=== PATIENT | female | born 1995 | race African-American/Black ===

== ENCOUNTER 2016-03-08 15:11 | Emergency (ER) | payer SELFPAY ==
--- NOTE | 2016-03-08 15:30 | ER Document Report ---
ED Medical Screen (RME) - General Stated Complaint: PAINFUL TAIL BONE Notes: 4 days painful area overlying tail bone hot, tender, no drainage never had an abscess, denies MRSA no trauma likely an abscess I have greeted and performed a rapid initial assessment of this patient. A comprehensive ED assessment and evaluation of the patient, analysis of test results and completion of the medical decision making process will be conducted by additional ED providers. TRAVEL OUTSIDE OF THE [place] IN LAST 30 DAYS: No - Related Data Allergies/Adverse Reactions: No Known Allergies Allergy (Verified 02/04/16 08:25) Past Medical History Pulmonary Medical History: Reports: Hx Asthma Neurological Medical History: Reports: Hx Migraine Psychiatric Medical History: Reports: Hx Anxiety, Hx Bipolar Disorder, Hx Depression Past Surgical History: Reports: Hx Oral Surgery - wisdom teeth - Immunizations Immunizations up to date: Yes Hx Diphtheria, Pertussis, Tetanus Vaccination: Yes
[2016-03-08] MEDS ORDERED: ACETAMINOPHEN 325 MG TABLET PO ONE (15:31)
--- NOTE | 2016-03-08 17:54 | ER Document Report ---
ED General - General Information source: Patient TRAVEL OUTSIDE OF THE [place] IN LAST 30 DAYS: No - HPI Patient complains to provider of: Swollen, Tender Area Onset: Other - ~3-4 days ago Onset/Duration: Gradual, Worse Associated symptoms: Other - See Narrative Recently [facility] <ELLI MANZANARES - Last Filed: 03/08/16 18:01> <SARA MCCLELLAND - Last Filed: 03/08/16 23:01> - General Chief Complaint: Abscess Stated Complaint: PAINFUL TAIL BONE Notes: Patient is a 20-year-old female presenting to the emergency chief complaint tender swollen area at the top of her buttock cleft which she began to notice 3- 4 days ago patient states that she has been taking amoxicillin for the past 2 days being treated for UTI. Patient was first diagnosed "the week before last" at the [place] [facility], but was not given any medication to treat the UTI. Patient states that she went to urgent care March 06, because she "cannot take it anymore. I feel like my body is shutting down." Patient states that on Tuesday she had a fever of 103.8, cough, sneezes, rhinorrhea, abdominal pain , and chills. Patient states that today she has started to have black and watery stool, abdominal pain, and "trouble flatulating." Patient denies having the flu shot this year. (ELLI MANZANARES) This 20-year-old female patient comes emergency room complaining of onset Tuesday of dry cough fever aching all over. She reports going to the [place] couple weeks ago possibly and being diagnosed with UTI with no treatment. She went to an urgent care on Tuesday for her fever of 103.8 which developed the day before with coughing, sneezing, runny nose, abdominal pain and chills. She was diagnosed with urinary tract infection started on amoxicillin. She reports early this morning about 7 AM, she had a large black and watery stool. She did not get a flu shot. She was quite reluctant to allow a rectal exam and is now been almost 15 hours since her bowel movement this morning, and she reports that she has not had any bowel movement since the one around 7 AM. She did show me a picture on her start phone of this stool and it is in fact black and looks like it is old blood possibly from an upper GI bleed. Her hemoglobin is 11.5, there is no prior lab work in our computer to compare to. Her Chem-12 is unremarkable, her white blood cell count 11,666 segs no bands, her urine is dilute with 2 WBCs and trace bacteria and small leukocyte esterase. A rapid flu test was negative. At this time she is agreeable to rectal exam by the nurse to obtain specimens to test for blood since she still has no need to have a bowel movement. (SARA MCCLELLAND) - Related Data Allergies/Adverse Reactions: No Known Allergies Allergy (Verified 03/08/16 15:29) Past Medical History - General Information source: Patient Last Menstrual Period: 03/01/2016 - Social History Smoking Status: Former Smoker Chew tobacco use (# tins/day): No Frequency of alcohol use: None Drug Abuse: None Family History: CVA, DM, Hypertension, Thyroid Disfunction Patient has suicidal ideation: No Patient has homicidal ideation: No Pulmonary Medical History: Reports: Hx Asthma Neurological Medical History: Reports: Hx Migraine Renal/ Medical History: Denies: Hx Peritoneal Dialysis Psychiatric Medical History: Reports: Hx Anxiety, Hx Bipolar Disorder, Hx Depression Past Surgical History: Reports: Hx Oral Surgery - wisdom teeth - Immunizations Immunizations up to date: Yes Hx Diphtheria, Pertussis, Tetanus Vaccination: Yes <ELLI MANZANARES - Last Filed: 03/08/16 18:01> Review of Systems - Review of Systems Constitutional: See HPI, Chills, Fever EENT: See HPI, Nose congestion Cardiovascular: No symptoms reported Respiratory: See HPI, Cough Gastrointestinal: No symptoms reported, Abdominal pain, Diarrhea, Black stools, Other - "trouble flatulating" Genitourinary: No symptoms reported Female Genitourinary: No symptoms reported Musculoskeletal: No symptoms reported Skin: See HPI, Lumps - Tender lump lower back (tail bone area) Hematologic/Lymphatic: No symptoms reported Neurological/Psychological: No symptoms reported -: Yes All other systems reviewed and negative <ELLI MANZANARES - Last Filed: 03/08/16 18:01> Physical Exam - General General appearance: Alert - HEENT Head: Normocephalic, Atraumatic Eyes: Normal Pupils: PERRL - Respiratory Respiratory status: No respiratory distress Chest status: Nontender Breath sounds: Normal Chest palpation: Normal - Cardiovascular Rhythm: Regular Heart sounds: Normal auscultation Murmur: No - Abdominal Inspection: Obese Bowel sounds: Hyperactive Tenderness: Tender - Diffuse mild tenderness to palpation - Back Back: Tender - Indurated, tender 1 cm area - left upper buttock cleft. Did not feel fluctuant. - Extremities General upper extremity: Normal inspection General lower extremity: Normal inspection - Neurological Neuro grossly intact: Yes Cognition: Normal Orientation: AAOx4 [place] Coma Scale Eye Opening: Spontaneous [place] Coma Scale Verbal: Oriented [place] Coma Scale Motor: Obeys Commands [place] Coma Scale Total: 15 Speech: Normal - Psychological Associated symptoms: Normal affect, Normal mood - Skin Skin Temperature: Warm Skin Moisture: Dry Skin Color: Normal <ELLI MANZANARES - Last Filed: 03/08/16 18:01> Course - Laboratory Result Diagrams: 03/08/16 18:45 03/08/16 18:45 <SARA MCCLELLAND - Last Filed: 03/08/16 23:01> - Vital Signs Vital signs: Temp Pulse Resp BP Pulse Ox 99.8 F 104 H 13 119/60 100 03/08/16 19:29 03/08/16 15:30 03/08/16 19:08 03/08/16 19:08 03/08/16 19:08 (ELLI MANZANARES) (SARA MCCLELLAND) - Laboratory Laboratory results interpreted by me: 03/08/16 03/08/16 18:45 20:06 WBC 11.6 H Hgb 11.5 L MCV 71 L MCH 22.5 L MCHC 31.7 L RDW 17.6 H Urine Ketones TRACE H Urine Blood SMALL H Ur Leukocyte Esterase SMALL H (SARA MCCLELLAND) Discharge <ELLI MANZANARES - Last Filed: 03/08/16 18:01> <SARA MCCLELLAND - Last Filed: 03/08/16 23:01> - Discharge Clinical Impression: Viral syndrome, Left buttock abscess Condition: Stable Disposition: HOME, SELF-CARE Additional Instructions: Viral Syndrome: The physician has diagnosed a viral infection. Viruses not only cause "colds," but can cause many different symptoms including generalized aching, fever, headache, cough, diarrhea, nausea, vomiting, and fatigue. The treatment, for the most part, is simply relief of symptoms. This means that antibiotics are usually not given. Rest, fluids, pain medications and, occasionally, medication for the specific symptoms that are most bothersome will be prescribed. Use good handwashing to avoid passing the virus to others. Shared toys should be cleaned with disinfectant. Clean the toilets, sinks, and counter surfaces in bathrooms. Launder clothing in hot water. Contact the physician if you develop any new or unusual symptoms such as severe headache, stiff neck, high fever, chest pain, productive cough, or shortness of breath. You should be rechecked if you don't see marked improvement within seven to 10 days. Abscess: You are developing an abscess (boil). This a pus-forming infection, usually due to staph. Some boils may be left to drain on their own, but most require lancing. From the time the tender lump first appears, it may be three or four days before the abscess is ready to german. Local heat and rest help at this stage of treatment. An antibiotic may prevent spread of the infection. Once the abscess is opened, packing may be placed into it. This is done so pus is not sealed inside by premature closure of the cavity. The packing will be removed at your follow-up visit or you may be advised to remove it yourself at home. Sometimes this packing must be replaced a few times during healing. The wound will heal with surprisingly little scar. Depending on the size and location of an abscess, healing can take one to four weeks. You may shower and wash the area around the incision site two or three times a day. Antibiotics may be prescribed, but are usually not necessary after an abscess has been drained. If you develop fever, chilling, worsening pain, or increasing swelling in the area, call the doctor or return immediately. //////////////////////////////////////////////////////////////////////////////// /////////////////////////////////////////////////////////////////////////////// Most of your symptoms of cough, fever, chills, and abdominal pain are due to a viral infection. The stool was tested and found to be negative for blood. The urine appears to have very little evidence of infection at this point, this may be due to the antibiotics you are taking. The painful area in her buttock is a developing abscess, it is not fluctuant or ready to be opened at this point. Frequently, if antibiotics are started this point and you soak in warm tub frequently, the infection will calm down and not require incision and drainage. Take medications as prescribed. Soak in a warm toe frequently. Get plenty of rest and drink plenty of fluids. Take Tylenol every 4 hours with Motrin or Aleve for fever and achiness. Follow-up with your primary care provider if not improving. Return to the emergency room if the painful area to your buttock continues to enlarge. Prescriptions: Clindamycin HCl 300 mg PO QID #28 capsule Hydrocodone/Acetaminophen [[place] 5-325 mg Tablet] 1 tab PO Q4 PRN #15 tablet PRN Reason: Scribe Attestation: 03/08/16 23:01 I personally performed the services described in the documentation, reviewed and edited the documentation which was dictated to the scribe in my presence, and it accurately records my words and actions. (SARA MCCLELLAND) Scribe Documentation - Scribe Written by Hubert:: Elli Manzanares 03/08/2016 1758 acting as scribe for :: Honey <ELLI MANZANARES - Last Filed: 03/08/16 18:01>
[2016-03-08] MEDS ORDERED: KETOROLAC TROMETHAMINE INJ/PF 30 MG/1 ML SDV IV ONE (18:00)
[2016-03-08] MEDS ORDERED: NORMAL SALINE 1000 ML 1,000 ML IV ONE (18:00)
[2016-03-08 19:14] LABS: ABSOLUTE MONOCYTES (AUTO) 0.9 10^3/uL (0.1-1.4); ABSOLUTE NEUT (AUTO) 7.7 10^3/uL (1.7-8.2); BASOPHILS % (AUTO) 0.2 % (0-2); EOSINOPHILS % (AUTO) 0.4 % (0-6); HEMATOCRIT 36.3 % (36.0-47.0); HEMOGLOBIN 11.5 g/dL (12.0-15.5); HGB HCT DIFFERENCE -1.8; LYMPHOCYTES % (AUTO) 25.8 % (13-45); MEAN CORPUSCULAR HEMOGLOBIN 22.5 pg (27.0-33.4); MEAN CORPUSCULAR HGB CONC 31.7 g/dL (32.0-36.0); MEAN CORPUSCULAR VOLUME 71 fl (80-97); MONOCYTES % (AUTO) 7.4 % (3-13); RED BLOOD COUNT 5.12 10^6/uL (3.72-5.28); RED CELL DISTRIBUTION WIDTH 17.6 % (11.5-14.0); SEGMENTED NEUTROPHILS % (AUTO) 66.2 % (42-78); WHITE BLOOD COUNT 11.6 10^3/uL (4.0-10.5)
[2016-03-08 19:25] LABS: ALANINE AMINOTRANSFERASE 32 U/L (9-52); ALBUMIN 3.9 g/dL (3.5-5.0); ALKALINE PHOSPHATASE 80 U/L (38-126); ANION GAP 13 (5-19); ASPARTATE AMINO TRANSFERASE 29 U/L (14-36); BILIRUBIN,TOTAL 0.5 mg/dL (0.2-1.3); BLOOD UREA NITROGEN 7 mg/dL (7-20); CALCIUM 9.1 mg/dL (8.4-10.2); CARBON DIOXIDE 26 mmol/L (22-30); CHLORIDE 99 mmol/L (98-107); GLUCOSE 94 mg/dL (75-110); POTASSIUM 3.8 mmol/L (3.6-5.0); SODIUM 138.1 mmol/L (137-145); TOTAL PROTEIN 7.5 g/dL (6.3-8.2)
[2016-03-08] MEDS ORDERED: DEXTROSE 5%-LACTATED RINGERS 1,000 ML IV ONE (19:34)
[2016-03-08 20:29] LABS: APPEARANCE,URINE SLIGHTLY-CLOUDY; BILIRUBIN,URINE NEGATIVE (NEGATIVE); GLUCOSE, URINE NEGATIVE (NEGATIVE); KETONES,URINE TRACE mg/dL (NEGATIVE); LEUKOCYTE ESTERASE,URINE SMALL (NEGATIVE); NITRITE,URINE NEGATIVE (NEGATIVE); PROTEIN,URINE NEGATIVE (NEGATIVE); URINE SPECIFIC GRAVITY 1.009; UROBILINOGEN,URINE NEGATIVE mg/dL (<2.0)
[2016-03-08] MEDS ORDERED: CLINDAMYCIN 600 MG/D5W RTU 50 ML IV ONE (20:42)
[2016-03-08] MEDS ORDERED: HYDROCODONE/ACETAMINOPHEN 5-325 MG 6 TAB/DSPK PO PRN (23:01)
[2016-03-08 23:41] VITALS: BP 122/88
== END 2016-03-08 23:17 | disposition home or self-care (01) ==
LOC: ER 15:11
DX: L02.31 Cutaneous abscess of buttock (principal); B34.9 Viral infection, unspecified; E66.9 Obesity, unspecified; R50.9 Fever, unspecified; R05 Cough; Z87.891 Personal history of nicotine dependence
CPT/HCPCS: 99283; 96361; 96375; 96365; 96367; 36415; 87040; 84703; 85025; 82272; 80053; 81001; 87804; J1885; J7030

== ENCOUNTER 2016-03-11 17:11 | Emergency (ER) | payer SELFPAY ==
[2016-03-11] MEDS ORDERED: IBUPROFEN 800 MG TABLET PO ONE (17:54)
--- NOTE | 2016-03-11 17:56 | ER Document Report ---
ED Medical Screen (RME) - General Chief Complaint: Abscess Stated Complaint: ABSCESS Mode of Arrival: Wheelchair Information source: Patient Notes: Patient returns today with complaints of abscess to her buttocks. Patient was evaluated 2 days ago and reports it's worse. Patient does have a temperature 103 with sinus tach. [facility] Patient sitting in a wheelchair unable to obtain evaluate abscess. I have greeted and performed a rapid initial assessment of this patient. A comprehensive ED assessment and evaluation of the patient, analysis of test results and completion of the medical decision making process will be conducted by additional ED providers. TRAVEL OUTSIDE OF THE [place] IN LAST 30 DAYS: No - Related Data Allergies/Adverse Reactions: No Known Allergies Allergy (Verified 03/11/16 17:54) Past Medical History Pulmonary Medical History: Reports: Hx Asthma Neurological Medical History: Reports: Hx Migraine Renal/ Medical History: Denies: Hx Peritoneal Dialysis Psychiatric Medical History: Reports: Hx Anxiety, Hx Bipolar Disorder, Hx Depression Past Surgical History: Reports: Hx Oral Surgery - wisdom teeth - Immunizations Immunizations up to date: Yes Hx Diphtheria, Pertussis, Tetanus Vaccination: Yes
[2016-03-11] MEDS ORDERED: LIDOCAINE 4%/TETRACAINE 0.5%/EPI 0.18% 5 ML TOPICAL SOLN TOP ONE (19:20)
[2016-03-11] MEDS ORDERED: ONDANSETRON 4 MG TAB.RAPDIS PO ONE (19:20)
[2016-03-11] MEDS ORDERED: OXYCODONE-ACETAMINOPHEN 5-325 MG TABLET PO ONE (19:20)
--- NOTE | 2016-03-11 19:20 | ER Document Report ---
ED Skin Rash/Insect Bite/Abscs - General Chief Complaint: Abscess Stated Complaint: ABSCESS Time seen by provider: 19:20 Mode of Arrival: Wheelchair Information source: Patient Notes: 20 yo female with enlarging right gluteal crest abscess. Fever today. Increased pain. Has been taking clindamycin prescribed a few days ago when it was a small firm area seen by dr. rebollar. TRAVEL OUTSIDE OF THE [place] IN LAST 30 DAYS: No - Related Data Allergies/Adverse Reactions: No Known Allergies Allergy (Verified 03/11/16 17:54) Past Medical History - General Information source: Patient - Social History Smoking Status: Current Every Day Smoker Chew tobacco use (# tins/day): Yes Frequency of alcohol use: Rare Drug Abuse: None Lives with: Spouse/Significant other Family History: CVA, DM, Hypertension, Thyroid Disfunction Patient has suicidal ideation: No Patient has homicidal ideation: No Pulmonary Medical History: Reports: Hx Asthma Neurological Medical History: Reports: Hx Migraine Renal/ Medical History: Denies: Hx Peritoneal Dialysis Psychiatric Medical History: Reports: Hx Anxiety, Hx Bipolar Disorder, Hx Depression Past Surgical History: Reports: Hx Oral Surgery - wisdom teeth - Immunizations Immunizations up to date: Yes Hx Diphtheria, Pertussis, Tetanus Vaccination: Yes Review of Systems - Review of Systems Constitutional: See HPI EENT: No symptoms reported Cardiovascular: No symptoms reported Respiratory: No symptoms reported Gastrointestinal: No symptoms reported Genitourinary: No symptoms reported Female Genitourinary: No symptoms reported Musculoskeletal: No symptoms reported Skin: See HPI Hematologic/Lymphatic: No symptoms reported Neurological/Psychological: No symptoms reported Physical Exam - Vital signs Vitals: Temp Pulse Resp BP Pulse Ox 103.1 F H 113 H 20 134/66 H 100 03/11/16 17:51 03/11/16 17:51 03/11/16 17:51 03/11/16 17:51 03/11/16 17:51 Interpretation: Tachycardic - mild 104, Febrile - General General appearance: Appears well, Alert - HEENT Head: Normocephalic, Atraumatic Eyes: Normal Pupils: PERRL Neck: Supple - Respiratory Respiratory status: No respiratory distress Chest status: Nontender Breath sounds: Normal Chest palpation: Normal - Cardiovascular Rhythm: Regular Heart sounds: Normal auscultation Murmur: No - Abdominal Inspection: Normal Distension: No distension Bowel sounds: Normal Tenderness: Nontender Organomegaly: No organomegaly - Back Back: Tender - right gluteal crest abscess - Extremities General upper extremity: Normal inspection, Nontender, Normal color, Normal ROM , Normal temperature General lower extremity: Normal inspection, Nontender, Normal color, Normal ROM , Normal temperature, Normal weight bearing. No: Cecily's sign - Neurological Neuro grossly intact: Yes Cognition: Normal Orientation: AAOx4 Negrita Coma Scale Eye Opening: Spontaneous [place] Coma Scale Verbal: Oriented [place] Coma Scale Motor: Obeys Commands [place] Coma Scale Total: 15 Speech: Normal Motor strength normal: LUE, RUE, LLE, RLE Sensory: Normal - Psychological Associated symptoms: Normal affect, Normal mood - Skin Skin Temperature: Warm Skin Moisture: Dry Skin Color: Normal Skin irregularity: Abscess - right gluteal crest Character of irregularity: Erythematous Irregularity with: Tenderness, Warmth, Induration - 10 cm, flucutance 2 cm, Inflammation Course - Re-evaluation Re-evalutation: 03/11/16 20:55 vitals are stable at discharge. fever down. - Vital Signs Vital signs: Temp Pulse Resp BP Pulse Ox 99.1 F 91 16 129/75 H 98 03/11/16 20:55 03/11/16 20:55 03/11/16 20:55 03/11/16 20:55 03/11/16 20:55 - Laboratory Result Diagrams: 03/11/16 20:04 03/11/16 20:04 Laboratory results interpreted by me: 03/11/16 20:04 WBC 19.2 H Hgb 10.5 L Hct 32.8 L MCV 71 L MCH 22.5 L RDW 17.4 H Seg Neutrophils % 80.9 H Lymphocytes % 12.3 L Absolute Neutrophils 15.5 H Procedures - Incision and Drainage Right Buttock Time completed: 20:36 Type: Simple Anesthetic type: 1% Lidocaine mL's of anesthetic: 5 Blade size: 11 I&D procedure: Betadine prep applied Incision Method: Incision made by scalpel - x cut Amount/type of drainage: large pus and blood Adult Front & Back picture: 1 - abscess Discharge - Discharge Clinical Impression: pilonidal abscess Incision and drainage Leukocytosis Qualifiers: Leukocytosis type: unspecified Qualified Code(s): D72.829 - Elevated white blood cell count, unspecified Fever Qualifiers: Fever type: other Qualified Code(s): R50.81 - Fever presenting with conditions classified elsewhere Condition: Good Disposition: HOME, SELF-CARE Instructions: Abscess ([facility]), Oral Narcotic Medication ([facility]), Post Incision and Drainage, Clindamycin ([facility]) Additional Instructions: to er for recheck tomorrow motrin for fever pain medication warm compress keep dressing on until tomorrow Prescriptions: Oxycodone HCl/Acetaminophen [Percocet 10-325 Mg Tablet] 1 each PO Q4HP PRN #15 tablet PRN Reason: Forms: Return to School, Return to Work Referrals: [facility],NO [Primary Care Provider] - Follow up as needed
[2016-03-11 20:15] LABS: ABSOLUTE BASOPHILS # (AUTO) 0.1 10^3/uL (0.0-0.2); ABSOLUTE EOSINOPHILS # (AUTO) 0.1 10^3/uL (0.0-0.6); ABSOLUTE LYMPHOCYTES (AUTO) 2.4 10^3/uL (0.5-4.7); ABSOLUTE MONOCYTES (AUTO) 1.2 10^3/uL (0.1-1.4); ABSOLUTE NEUT (AUTO) 15.5 10^3/uL (1.7-8.2); BASOPHILS % (AUTO) 0.5 % (0-2); EOSINOPHILS % (AUTO) 0.3 % (0-6); HEMATOCRIT 32.8 % (36.0-47.0); HEMOGLOBIN 10.5 g/dL (12.0-15.5); HGB HCT DIFFERENCE -1.3; LYMPHOCYTES % (AUTO) 12.3 % (13-45); MEAN CORPUSCULAR HEMOGLOBIN 22.5 pg (27.0-33.4); MEAN CORPUSCULAR VOLUME 71 fl (80-97); RED BLOOD COUNT 4.65 10^6/uL (3.72-5.28); RED CELL DISTRIBUTION WIDTH 17.4 % (11.5-14.0); SEGMENTED NEUTROPHILS % (AUTO) 80.9 % (42-78); WHITE BLOOD COUNT 19.2 10^3/uL (4.0-10.5)
[2016-03-11 20:28] LABS: ALANINE AMINOTRANSFERASE 26 U/L (9-52); ALBUMIN 3.6 g/dL (3.5-5.0); ALKALINE PHOSPHATASE 86 U/L (38-126); ANION GAP 12 (5-19); ASPARTATE AMINO TRANSFERASE 30 U/L (14-36); BILIRUBIN,TOTAL 0.7 mg/dL (0.2-1.3); BLOOD UREA NITROGEN 9 mg/dL (7-20); CALCIUM 9.4 mg/dL (8.4-10.2); CARBON DIOXIDE 25 mmol/L (22-30); CHLORIDE 101 mmol/L (98-107); CREATININE RESULT 0.72 mg/dL (0.52-1.25); GLUCOSE 106 mg/dL (75-110); POTASSIUM 3.9 mmol/L (3.6-5.0); TOTAL PROTEIN 6.6 g/dL (6.3-8.2)
[2016-03-11 20:56] VITALS: BP 129/75
== END 2016-03-11 21:02 | disposition home or self-care (01) ==
LOC: ER 17:11
PROC: 0H98XZZ Drainage of Buttock Skin, External Approach (ICD-10-PCS; principal; 2016-03-11)
DX: L05.01 Pilonidal cyst with abscess (principal); R50.81 Fever presenting with conditions classified elsewhere; D72.829 Elevated white blood cell count, unspecified; R00.0 Tachycardia, unspecified; J45.909 Unspecified asthma, uncomplicated; F17.200 Nicotine dependence, unspecified, uncomplicated
CPT/HCPCS: 10080; 99283; 36415; 87070; 87205; 85025; 87075; 87077; 80053; S0119; J3490

== ENCOUNTER 2016-03-12 14:58 | Emergency (ER) | payer SELFPAY ==
--- NOTE | 2016-03-12 15:20 | ER Document Report ---
ED Medical Screen (RME) - General Stated Complaint: RECHECK SKIN PROBLEM Notes: patient had an right pilonidal abscess drained yesterday, here for wound recheck I have greeted and performed a rapid initial assessment of this patient. A comprehensive ED assessment and evaluation of the patient, analysis of test results and completion of the medical decision making process will be conducted by additional ED providers. TRAVEL OUTSIDE OF THE [place] IN LAST 30 DAYS: No - Related Data Allergies/Adverse Reactions: No Known Allergies Allergy (Verified 03/11/16 17:54) Past Medical History Pulmonary Medical History: Reports: Hx Asthma Neurological Medical History: Reports: Hx Migraine Renal/ Medical History: Denies: Hx Peritoneal Dialysis Psychiatric Medical History: Reports: Hx Anxiety, Hx Bipolar Disorder, Hx Depression Past Surgical History: Reports: Hx Oral Surgery - wisdom teeth - Immunizations Immunizations up to date: Yes Hx Diphtheria, Pertussis, Tetanus Vaccination: Yes
== END 2016-03-12 17:41 | disposition left against medical advice (07) ==
LOC: ER 14:58
DX: Z53.9 Procedure and treatment not carried out, unspecified reason (principal); L05.01 Pilonidal cyst with abscess
CPT/HCPCS: 99281

== ENCOUNTER → 2019-01-17 | Day surgery (SDC) | payer OTHER ==
--- NOTE | 2019-01-17 16:07 | RADIOLOGY REPORT (SQ) ---
EXAM DESCRIPTION: FLUORO/NEEDLE PLACEMENT; ARTHRO WRIST INJECTION COMPLETED DATE/TIME: 01/17/2019 3:35 pm REASON FOR STUDY: M77.8 OTHER ENTHESOPATHIES, NOT ELSEWHERE CLASSIFIED M77.8 OTHER ENTHESOPATHIES, NOT ELSEWHERE CLASSIFIED COMPARISON: None. FLUOROSCOPY TIME: 16 seconds. 1 image submitted to PACS. LIMITATIONS: None. PROCEDURE: The procedure, risks, benefits and alternatives were discussed with the patient who then provided written consent for the procedure. The left wrist was marked and a time-out was called for c orrect marking verification. Entry site marked using fluoroscopic guidance. The wrist was prepped a nd draped using sterile technique. Local anesthesia achieved using 1% lidocaine injection. Hypode rmic needle introduced into the joint space under direct fluoroscopic visualization. Non-ionic contr ast instilled to confirm intra-articular position. Dilute gadolinium solution then injected. Needl e removed and entry site covered with sterile bandage. No immediate complications noted. TECHNIQUE: Digital images acquired during fluoroscopy and stored on PACS. Patient immediately take n to the MR suite for additional imaging. INJECTION LOCATION: Left wrist. CONTRAST TYPE AND AMOUNT: 2 mL Dotarem/Saline mixture. IMPRESSION: SUCCESSFUL NEEDLE PLACEMENT AND INJECTION FOR LEFT WRIST MR ARTHROGRAM. COMMENT: Quality ID [id number]: Final reports for procedures using fluoroscopy that document radiation exp osure indices, or exposure time and number of fluorographic images (if radiation exposure indices are not available) TECHNICAL DOCUMENTATION: JOB ID: [id number] [employer]- All Rights Reserved Reading location - IP/workstation name: [email or web address]
--- NOTE | 2019-01-17 16:52 | RADIOLOGY REPORT (SQ) ---
EXAM DESCRIPTION: MRI LT UPPER JOINT WITH COMPLETED DATE/TIME: 01/17/2019 4:11 pm REASON FOR STUDY: M77.8 OTHER ENTHESOPATHIES, NOT ELSEWHERE CLASSIFIED M77.8 OTHER ENTHESOPATHIES, NOT ELSEWHERE CLASSIFIED COMPARISON: None. TECHNIQUE: Left wrist post-arthrogram imaging includes T1 and T1 and T2 fat sat sequences. LIMITATIONS: None. FINDINGS: JOINT DISTENSION: Adequate. No loose body. BONE MARROW: No alteration of signal to suggest marrow replacement or edema. No occult fracture. No l arge osteophytes. CARPAL ALIGNMENT AND ARTICULATION: Normal congruity of sigmoid notch at level of distal ruj without p ositive or negative ulnar variance. Normal capitolunate angle. No widening of scapholunate articulati on. SCAPHOLUNATE LIGAMENT: There is contrast in the middle compartment, a small defect in the scapholunat e ligament is present on coronal series 12, image 9/16 LUNATO-TRIQUETRAL LIGAMENT: Without tear. No contrast in middle carpal compartment. TFC COMPLEX: There is contrast in the distal radioulnar joint. Ulnar attachments of the triangular f ibrocartilage are indistinct on coronal series 12 image 10/16. Meniscus intact. Extensor carpi ulnar is tendon normal without tendinopathy. No contrast in distal RUJ. EXTRINSIC LIGAMENTS AND DISTAL RADIO-ULNAR JOINT: Dorsal and volar distal RUJ ligaments intact withou t subluxation of the distal ulna with respect to the radius. 1-6 EXTENSOR COMPARTMENTS: Normal. Specifically no tendinopathy of the abductor pollicis longus or ex tensor pollicis brevis to suggest de Quervains syndrome. CARPAL TUNNEL AND MEDIAN NERVE: Normal volume and morphology of carpal tunnel proximal at the level o f the radiocarpal joint and distally at the hook of the hamate. No thickening or signal alteration of median nerve. OTHER: Along the dorsal aspect of the radiocarpal joint, a 13 x 4 mm ganglion cyst is present, best s hown on axial T2 series 5, image 10/20, and coronal series 6 image 13/16. IMPRESSION: Contrast from the radiocarpal joint extends into the intercarpal joints through small de fect in the scapholunate ligament Contrast from the radiocarpal joint extends into the distal radioulnar joint through a defect along t he ulnar attachment of the triangular fibrocartilage 13 x 4 mm ganglion cyst along the dorsal aspect of the radioscaphoid joint TECHNICAL DOCUMENTATION: JOB ID: [id number] [employer]- All Rights Reserved Reading location - IP/workstation name: [email or web address]
== END ==
LOC: RAD 14:42
PROVIDERS: ATTEND Orthopaedic Surgery
DX: M77.8 Other enthesopathies, not elsewhere classified (principal)
CPT/HCPCS: 73222; 25246; 77002; A9576

== ENCOUNTER 2019-07-30 19:40 | Emergency (ER) | payer OTHER ==
[2019-07-30] MEDS ORDERED: NORMAL SALINE 500 ML IV ONE (20:23)
[2019-07-30] MEDS ORDERED: ONDANSETRON HCL INJ/PF 4 MG/2 ML SDV IV ONE (20:24)
[2019-07-30] MEDS ORDERED: MORPHINE SULFATE 10 MG/ML INJ IV ONE (20:24)
--- NOTE | 2019-07-30 20:26 | ER Document Report ---
ED Medical Screen (RME) - General Chief Complaint: Abdominal Pain Stated Complaint: ABDOMINAL PAIN Time Seen by Provider: 07/30/19 20:19 Information source: Patient Notes: HPI; a 4-year-old female presents to the emergency room complaining of worsening abdominal pain for the past 2 days. Started with diarrhea yesterday. Complains of nausea but no vomiting. No fever. No recent travel. No COVID-19 exposure. No urinary symptoms. States she was at [facility] earlier today had a KUB which she was told shows a questionable small bowel obstruction. States they attempted to give her an enema with worsening symptoms. Referred to the emergency room for further evaluation. PE: Alert and oriented x3. Moderate distress noted. Lungs are clear to auscultation without rales, rhonchi, wheezes. Heart: Regular rate rhythm without murmurs, rubs, gallops. Abdomen soft, no guarding, no rebound, generalized tenderness on palpation. No active bowel sounds. I have greeted and performed a rapid initial assessment of this patient. A comprehensive ED assessment and evaluation of the patient, analysis of test results and completion of the medical decision making process will be conducted by additional ED providers. I have specifically instructed the patient or family members with the patient to immediately return to any nursing staff should anything change in the patient's condition or with their chief complaint. TRAVEL OUTSIDE OF THE [place] IN LAST 30 DAYS: No - Related Data Allergies/Adverse Reactions: Sulfa (Sulfonamide Antibiotics) Allergy (Verified 07/30/19 20:20) Past Medical History Pulmonary Medical History: Reports: Hx Asthma Neurological Medical History: Reports: Hx Migraine Renal/ Medical History: Denies: Hx Peritoneal Dialysis Psychiatric Medical History: Reports: Hx Anxiety, Hx Bipolar Disorder, Hx Depression Past Surgical History: Reports: Hx Oral Surgery - wisdom teeth - Immunizations Immunizations up to date: Yes Hx Diphtheria, Pertussis, Tetanus Vaccination: Yes Physical Exam - Vital signs Vitals: Temp Pulse Resp BP Pulse Ox 99.2 F 89 18 128/85 H 99 07/30/19 19:57 07/30/19 19:57 07/30/19 19:57 07/30/19 19:57 07/30/19 19:57 Course - Vital Signs Vital signs: Temp Pulse Resp BP Pulse Ox 99.2 F 89 18 128/85 H 99 07/30/19 19:57 07/30/19 19:57 07/30/19 19:57 07/30/19 19:57 07/30/19 19:57 Doctor's Discharge - Discharge Referrals: BRIAN HERNANDEZ, [Primary Care Provider] - Follow up as needed
[2019-07-30 22:04] LABS: ABSOLUTE LYMPHOCYTES (AUTO) 1.3 10^3/uL (0.5-4.7); ABSOLUTE MONOCYTES (AUTO) 0.3 10^3/uL (0.1-1.4); BASOPHILS % (AUTO) 0.2 % (0-2); EOSINOPHILS % (AUTO) 0.4 % (0-6); HEMATOCRIT 40.5 % (36.0-47.0); HEMOGLOBIN 13.4 g/dL (12.0-15.5); LYMPHOCYTES % (AUTO) 9.2 % (13-45); MEAN CORPUSCULAR HEMOGLOBIN 26.7 pg (27.0-33.4); MEAN CORPUSCULAR VOLUME 81 fl (80-97); MONOCYTES % (AUTO) 2.6 % (3-13); PLATELET COUNT 298 10^3/uL (150-450); RED CELL DISTRIBUTION WIDTH 15.9 % (11.5-14.0); SEGMENTED NEUTROPHILS % (AUTO) 87.6 % (42-78); TOTAL CELLS COUNTED % (AUTO) 100 %; WHITE BLOOD COUNT 13.7 10^3/uL (4.0-10.5)
[2019-07-30 22:12] LABS: ALBUMIN 4.3 g/dL (3.5-5.0); ALKALINE PHOSPHATASE 81 U/L (38-126); ANION GAP 5 (5-19); ASPARTATE AMINO TRANSFERASE 30 U/L (14-36); BILIRUBIN,TOTAL 0.7 mg/dL (0.2-1.3); BLOOD UREA NITROGEN 10 mg/dL (7-20); CARBON DIOXIDE 26 mmol/L (22-30); CHLORIDE 106 mmol/L (98-107); GLUCOSE 91 mg/dL (75-110); POTASSIUM 4.6 mmol/L (3.6-5.0); TOTAL PROTEIN 7.3 g/dL (6.3-8.2)
[2019-07-30 22:53] LABS: APPEARANCE,URINE CLEAR; BILIRUBIN,URINE NEGATIVE (NEGATIVE); COLOR,URINE STRAW; GLUCOSE, URINE NEGATIVE (NEGATIVE); KETONES,URINE NEGATIVE (NEGATIVE); LEUKOCYTE ESTERASE,URINE NEGATIVE (NEGATIVE); NITRITE,URINE NEGATIVE (NEGATIVE); PROTEIN,URINE NEGATIVE (NEGATIVE); URINE SPECIFIC GRAVITY 1.012; UROBILINOGEN,URINE NEGATIVE mg/dL (<2.0)
[2019-07-31] MEDS ORDERED: ONDANSETRON HCL INJ/PF 4 MG/2 ML SDV ONE (00:53)
[2019-07-31] MEDS ORDERED: PROMETHAZINE HCL INJ 50 MG/1 ML VIAL IM ONE (01:23)
[2019-07-31] MEDS ORDERED: PROMETHAZINE HCL INJ 25 MG/1 ML VIAL ONE (01:39)
--- NOTE | 2019-07-31 02:15 | ER Document Report ---
ED General - General Chief Complaint: Abdominal Pain Stated Complaint: ABDOMINAL PAIN Time Seen by Provider: 07/30/19 20:19 Primary Care Provider: ELLI COTE FNP-C [Primary Care Provider] - Follow up as needed Notes: 24-year-old female with no pertinent past medical history presenting today with acute abdominal pain x2 days. Describes as diffuse started in the right upper quadrant and then it began to spread. She is trying to take ibuprofen to help alleviate the pain. She was seen over urgent care who did a KUB which showed a gas pattern suspicious for SBO versus ileus. Stated that she was told if her symptoms worsen she was to report to the emergency department. Patient continues to have the sharp diffuse abdominal pain described as a knife scraping her insides. Patient denies wanting to take any pain medications. Reports a bloating feeling. She states she is unable to pass gas. No recent travel. She has had a decreased appetite last time she tried to eat with this afternoon it was chicken noodle soup. Has had non bloody diarrhea starting on Tuesday occurring approximately q hour. She denies any headaches, fevers, chills, or additional symptoms. TRAVEL OUTSIDE OF THE [place] IN LAST 30 DAYS: No - Related Data Allergies/Adverse Reactions: amoxicillin Allergy (Verified 07/30/19 20:25) clindamycin Allergy (Verified 07/30/19 20:25) Sulfa (Sulfonamide Antibiotics) Allergy (Verified 07/30/19 20:20) Home Medications: IRON Past Medical History - General Information source: Patient - Social History Smoking Status: Current Every Day Smoker Frequency of alcohol use: None Drug Abuse: None Family History: CVA, DM, Hypertension, Thyroid Disfunction Patient has homicidal ideation: No Pulmonary Medical History: Reports: Hx Asthma Neurological Medical History: Reports: Hx Migraine Renal/ Medical History: Denies: Hx Peritoneal Dialysis Psychiatric Medical History: Reports: Hx Anxiety, Hx Bipolar Disorder, Hx Depression Past Surgical History: Reports: Hx Oral Surgery - wisdom teeth - Immunizations Immunizations up to date: Yes Hx Diphtheria, Pertussis, Tetanus Vaccination: Yes Review of Systems - Review of Systems Constitutional: No symptoms reported EENT: No symptoms reported Cardiovascular: No symptoms reported Respiratory: No symptoms reported Gastrointestinal: See HPI Genitourinary: No symptoms reported Female Genitourinary: No symptoms reported Musculoskeletal: No symptoms reported Skin: No symptoms reported Neurological/Psychological: No symptoms reported Physical Exam - Vital signs Vitals: Temp Pulse Resp BP Pulse Ox 99.2 F 89 18 128/85 H 99 07/30/19 19:57 07/30/19 19:57 07/30/19 19:57 07/30/19 19:57 07/30/19 19:57 Interpretation: Normal - Notes Notes: Adult General: GENERAL: Alert, interacts well. No acute distress HEAD: Normocephalic, atraumatic EYES: Pupils equal, round and reactive to light. Extraocular movements intact. ENT: Oral mucosa moist, tongue midline. Oropharynx unremarkable. NECK: Full range of motion. Supple. Trachea midline. LUNGS: Clear to auscultation bilaterally, no wheezes, rales, or rhonchi. No respiratory distress. Nontender chest wall. HEART: Regular rate and rhythm. No murmurs, rubs or gallops. ABDOMEN: Soft, diffuse mild tenderness to light and deep palpation. No rebound or guarding. Nondistended. Bowel sounds decreased in left lower quadrant. GENITOURINARY: Deferred EXTREMITIES: Moves all 4 extremities spontaneously. No edema, normal radial and dorsal pedis pulses bilaterally. No cyanosis. BACK: Moves all extremities with full range of motion. NEUROLOGICAL: Alert and oriented x3. Normal speech. Strength 5/ 5 in all extremities. PSYCH: Normal affect, normal mood. SKIN: Warm, dry, normal turgor. No rashes or lesions noted. Course - Re-evaluation Re-evalutation: 07/31/19 02:06 Patient CBC shows a mild leukocytosis at 13.7. 07/31/19 03:34 Patient was reevaluated. Discussed findings of CT exam with patient. States she is no longer nauseous but she is still experiencing the sharp abdominal pain approximately 3. Denies any excessive use of ibuprofen states she only took approximately 400 mg once for her pain. A re-offered the patient pain medication. But she continues to deny wanting pain meds. Discussed with patient that the CT scan did not show a bowel obstruction. Shows no acute processes. Appendix is normal, gall bladder is normal. As patient reports excessive gassiness will prescribe her Gas-X. Reevaluated patient she states her pain level has decreased after taking the G as-X. She continues to deny nausea. As she is having greater than 10 bowel movements a day will prescribe her antibiotics. I recommend tylenol for the pain. You may take gas-x to help alleviate as well. I discussed with her that this is likely gastroenteritis. Discussed with her the importance of following up with primary care as soon as possible for symptoms. Discussed return precautions to occlude worsening symptoms or development of new symptoms. All questions answered - Vital Signs Vital signs: Temp Pulse Resp BP Pulse Ox 98.0 F 63 17 118/70 100 07/31/19 05:03 07/31/19 05:03 07/31/19 05:03 07/31/19 05:03 07/31/19 05:03 - Laboratory Result Diagrams: 07/30/19 21:36 07/30/19 21:36 Laboratory results interpreted by me: 07/30/19 07/30/19 21:36 21:40 WBC 13.7 H MCH 26.7 L RDW 15.9 H Lymph % (Auto) 9.2 L [place] % (Auto) 2.6 L Absolute Neuts (auto) 12.0 H Seg Neutrophils % 87.6 H Urine Blood SMALL H Discharge - Discharge Clinical Impression: Abdominal pain Qualifiers: Abdominal location: generalized Qualified Code(s): R10.84 - Generalized abdominal pain Condition: Stable Disposition: HOME, SELF-CARE Instructions: Abdominal Pain ([facility]) Additional Instructions: Your CT scan shows no bowel obstruction. You have a mild leukocytosis. As you been having multiple bowel movements in a day I will prescribe antibiotics. Please take medication as prescribed. Please follow-up with your primary care provider as soon as possible. If your symptoms worsen or you develop new symptoms please return to the emergency department. Prescriptions: Ciprofloxacin HCl [Cipro 500 mg Tablet] 500 mg PO BID 3 Days #6 tablet Referrals: ELLI COTE FNP-C [Primary Care Provider] - Follow up as needed
--- NOTE | 2019-07-31 02:54 | RADIOLOGY REPORT (SQ) ---
CLINICAL HISTORY: abdominal pain COMPARISON: None. TECHNIQUE: CT ABDOMEN PELVIS WITH IV CONTRAST on 07/30/2019 8:24 PM CDT This exam was performed according to our departmental dose-optimization program, which includes automated exposure control, adjustment of the mA and/or kV according to patient size and/or use of iterative reconstruction technique. FINDINGS: Lower lungs are clear. Abdomen: The liver is normal in appearance. There is no biliary dilatation. Gallbladder is normal in appearance. The pancreas and spleen are normal in appearance. The adrenal glands and kidneys are unremarkable. Abdominal aorta is normal in course and caliber without aneurysm. There is no free air. There is no retroperitoneal adenopathy. Pelvis: There is no bowel obstruction. Urinary bladder is unremarkable. There is small amount of free pelvic fluid. Uterus is normal in size. Appendix is normal. Skeleton: There are no acute osseous findings. No suspicious bony lesions. IMPRESSION: No acute process.
[2019-07-31] MEDS ORDERED: SIMETHICONE 80 MG TAB.CHEW PO ONE (03:34)
[2019-07-31 05:34] VITALS: BP 118/70
== END 2019-07-31 05:05 | disposition home or self-care (01) ==
LOC: ER 19:40
DX: R10.84 Generalized abdominal pain (principal); R10.11 Right upper quadrant pain; R14.0 Abdominal distension (gaseous); R63.0 Anorexia; R19.7 Diarrhea, unspecified; D72.829 Elevated white blood cell count, unspecified; Z88.0 Allergy status to penicillin; Z88.1 Allergy status to other antibiotic agents; Z88.2 Allergy status to sulfonamides; Z79.899 Other long term (current) drug therapy; F17.200 Nicotine dependence, unspecified, uncomplicated; J45.909 Unspecified asthma, uncomplicated
CPT/HCPCS: 99284; 96372; 96360; 36415; 83690; 85025; 81025; 80053; 81001; 74177; J7040; J2550